=== PATIENT | male | born 1960 | race Caucasian/White ===

== ENCOUNTER → 2024-04-23 | Outpatient (CLI) | payer MEDICARE, OTHER ==
--- NOTE | 2024-04-23 18:13 | XR ---
EXAMINATION TYPE: XR hand complete RT DATE OF EXAM: 04/23/2024 10:19 AM COMPARISON: None. CLINICAL INDICATION: Male, 64 years old with history of [id number] RT HAND PAIN, TECHNIQUE: 3 view(s) obtained. FINDINGS: Degenerative changes at the first carpal metacarpal junction. No acute fractures evident. Soft tissue s are normal. There appears be an old fracture of the proximal phalanx little finger Follow up exams can be performed 7-10 days from acute trauma for continued pain. IMPRESSION: 1. No acute osseous abnormality. 2. 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 [facility], , 04/23/2024 6:11 PM
== END | disposition home or self-care (01) ==
LOC: RADXRYALE 10:10
PROVIDERS: ATTEND Physician Assistant Medical
DX: M18.9 Osteoarthritis of first carpometacarpal joint, unspecified (principal)